=== PATIENT | female | born 1945 | race Caucasian/White ===

== ENCOUNTER 2020-02-25 04:54 | Day surgery (SDC) | payer OTHER, MEDICARE ==
[2020-02-24 09:28] VITALS: BMI 31.1
[2020-02-25] MEDS ORDERED: MIDAZOLAM HCL 2 MG/2 ML SINGLE DOSE VIAL ONE (07:36)
[2020-02-25 08:42] VITALS: TEMP 97.5
[2020-02-25 09:51] VITALS: BP 140/77; PULSE 69
== END 2020-02-25 10:00 | disposition home or self-care (01) ==
LOC: JASU-ENDO 04:54
PROVIDERS: ATTEND Internal Medicine Gastroenterology
PROC: 0DJD8ZZ Inspection of Lower Intestinal Tract, Via Natural or Artificial Opening Endoscopic (ICD-10-PCS; principal; 2020-02-25)
PROC: 0DB98ZX Excision of Duodenum, Via Natural or Artificial Opening Endoscopic, Diagnostic (ICD-10-PCS; 2020-02-25)
PROC: 0DB68ZX Excision of Stomach, Via Natural or Artificial Opening Endoscopic, Diagnostic (ICD-10-PCS; 2020-02-25)
DX: Z12.11 Encounter for screening for malignant neoplasm of colon (principal); K92.1 Melena; D50.9 Iron deficiency anemia, unspecified; K22.8 Other specified diseases of esophagus; K44.9 Diaphragmatic hernia without obstruction or gangrene; K31.89 Other diseases of stomach and duodenum; K29.50 Unspecified chronic gastritis without bleeding; Z86.010 Personal history of colon polyps
CPT/HCPCS: 43239; G0105; 88305-TC; 88342-TC